=== PATIENT | female | born 1980 | race Caucasian/White ===

== ENCOUNTER → 2020-04-19 12:27 | Outpatient (CLI) | payer OTHER, SELFPAY ==
--- NOTE | ~2020-04-19 | XR_ITS ---
EXAMINATION: XR chest 2V DATE: 04/19/2020 12:52 INDICATION: Psoriatic arthritis. Long-term use of drugs. TECHNIQUE: Frontal and lateral views of the chest were obtained. COMPARISON: Chest 2 views 12/20/2018 FINDINGS: The chest demonstrates clear lungs without pneumonia, pleural effusion, or pneumothorax. Th e heart size is normal. IMPRESSION: 1. No acute cardiopulmonary disease. Reviewed, dictated and finalized at location A.
== END ==
PROVIDERS: Visit Provider Physician Assistant Medical
DX: L40.50 Arthropathic psoriasis, unspecified (principal); Z79.899 Other long term (current) drug therapy
CPT/HCPCS: 71046

== ENCOUNTER → 2020-12-11 10:56 | Outpatient (CLI) | payer OTHER, SELFPAY ==
--- NOTE | ~2020-12-11 | XR_ITS ---
XR foot LT min 3V 12/11/2020 11:31 Indication: Psoriatic arthritis Procedure: 4 views left foot Comparison: No prior studies for comparison. Findings: No fracture, subluxation or dislocation. Lisfranc joint is intact. Small degenerative calca elvira enthesophyte. No foreign bodies. No erosive changes. Impression: 1: No significant bone or joint abnormality. Reviewed, dictated and finalized at location A. Impression: 1: No significant bone or joint abnormality.
--- NOTE | ~2020-12-11 | XR_ITS ---
XR elbow LT 2V 12/11/2020 11:31 Indication: Psoriatic arthritis Procedure: 2 views left elbow Comparison: No prior studies for comparison. Findings: There is normal anatomic alignment. No fracture, subluxation or dislocation. No erosive poppy nges. No significant soft tissue abnormality. No foreign bodies. Impression: 1: No significant bone or joint abnormality. Reviewed, dictated and finalized at location A. Impression: 1: No significant bone or joint abnormality.
--- NOTE | ~2020-12-11 | XR_ITS ---
XR ankle RT 2V 12/11/2020 11:31 Indication: Psoriatic arthritis Procedure: 2 views right ankle Comparison: No prior studies for comparison. Findings: There is normal anatomic alignment. No joint space narrowing. No erosive changes. No fractu re or traumatic malalignment. Small degenerative calcaneal enthesophyte at the plantar surface. No si gnificant soft tissue abnormality. No foreign bodies. Impression: 1: No significant bone or joint abnormality. Reviewed, dictated and finalized at location A. Impression: 1: No significant bone or joint abnormality.
--- NOTE | ~2020-12-11 | XR_ITS ---
XR hand BI arthritis min 3V 12/11/2020 11:31 Indication: Psoriatic arthritis Procedure: 4 views each hand Comparison: No prior studies for comparison. Findings: No fracture, subluxation or dislocation. No erosive changes. There is anatomic alignment. Impression: 1: No significant bone or joint abnormality. Reviewed, dictated and finalized at location A. Impression: 1: No significant bone or joint abnormality.
--- NOTE | ~2020-12-11 | XR_ITS ---
XR ankle LT 2V 12/11/2020 11:31 Indication: Psoriatic arthritis Procedure: 2 views left ankle Comparison: 12/11/2020 Findings: Ankle mortise intact. Small degenerative calcaneal enthesophyte. No significant soft tissue abnormality. No foreign bodies. No erosive changes. There is anatomic alignment. Impression: 1: No significant bone or joint abnormality. Reviewed, dictated and finalized at location A. Impression: 1: No significant bone or joint abnormality.
--- NOTE | ~2020-12-11 | XR_ITS ---
XR hip BI wo pelvis 12/11/2020 11:31 Indication: Psoriatic arthritis Procedure: 2 views each hip Comparison: 11/23/2017 and 01/02/2014 Findings: Normal anatomic alignment. No significant joint space narrowing. No fracture, subluxation o r dislocation. Sacral foramen are symmetric. Pelvic rings are intact. Impression: 1: No significant bone or joint abnormality. Reviewed, dictated and finalized at location A. Impression: 1: No significant bone or joint abnormality.
--- NOTE | ~2020-12-11 | XR_ITS ---
XR foot RT min 3V 12/11/2020 11:31 Indication: Right foot pain Procedure: 4 views right foot Comparison: 4 views right foot Findings: No fracture, subluxation or dislocation. There is anatomic alignment. Lisfranc joint intact . Normal mineralization. No soft tissue abnormality. No erosive changes.. Impression: 1: No significant bone or joint abnormality. Reviewed, dictated and finalized at location A. Impression: 1: No significant bone or joint abnormality.
== END ==
PROVIDERS: Visit Provider Physician Assistant Medical
DX: L40.50 Arthropathic psoriasis, unspecified (principal); Z79.899 Other long term (current) drug therapy; M25.552 Pain in left hip
CPT/HCPCS: 73070; 73130; 73521; 73600; 73630

== ENCOUNTER 2022-11-23 10:25 | Outpatient (CLI) | payer BC, SELFPAY ==
[2022-11-23 18:53] LABS: Alanine Aminotransferase 123 U/L (6-35); Alkaline Phosphatase 96 U/L (38-126); Aspartate Amino Transferase 64 U/L (14-36); Bilirubin,Total 0.6 mg/dL (0.2-1.3)
== END 2022-11-23 10:26 | disposition home or self-care (01) ==
LOC: ANHGOSHLAB 10:26
PROVIDERS: PCP Internal Medicine; Visit Provider Nurse Practitioner
DX: R74.8 Abnormal levels of other serum enzymes (principal)
CPT/HCPCS: 36415; 80076

== ENCOUNTER → 2022-12-01 10:13 | Outpatient (CLI) | payer BC, SELFPAY ==
--- NOTE | ~2022-12-01 | CT_ITS ---
Clinical Indication: Breast cancer staging CT Scan of the Chest, Abdomen, and Pelvis with Contrast: Technique: Contiguous sections were acquired throughout the chest, abdomen, and pelvis after intraven ous administration of 100 cc of Omnipaque 350. Dose reduction technique was used on this scan by uti lizing automated exposure control and iterative reconstruction technique. The dose-length product (DL P) was 1433.29 mGy-cm. Findings: Single mildly prominent left axillary lymph node measures 1.9 x 1.0 cm in size (axial image 27). Suraj tional shotty left axillary lymph nodes are present. No right axillary or mediastinal/hilar lymphaden opathy seen. There is postoperative change in the left breast. The mediastinal soft tissues and vascu lar structures appear normal. There is no evidence of pleural or pericardial effusion. The lungs are clear. No pulmonary nodules or infiltrates are noted. Multiple subtle, hyperenhancing hepatic lesions are present, largest measuring 4 cm in diameter. The spleen, pancreas, gallbladder, adrenals and kidneys are within normal limits. No evidence of aortic aneurysm. No lymphadenopathy. No bowel obstruction or bowel wall thickening. There is no evidence to suggest acute appendicitis. Urinary bladder is unremarkable. Small left adnexal cyst present. No other adnexal mass seen present. No ascites. Impression: Multiple hyperenhancing hepatic lesions, largest measuring 4 cm in diameter, consistent with metastat ic disease. Single mildly enlarged left axillary lymph node with additional shotty left axillary lymph nodes. Lef t axillary micky metastatic disease is a consideration. Correlate with patient's prior workup. Consid er PET scan and/or tissue sampling of the largest lymph node as indicated. Probable postoperative change and postoperative seroma in the left breast. Recurrent/residual neoplas m left breast cannot be excluded by CT imaging. Again, correlation with prior workup and treatment hi story is required. Consider mammography/sonography and/or breast MRI as indicated. Reviewed, dictated and finalized at location M. Impression: Multiple hyperenhancing hepatic lesions, largest measuring 4 cm in diameter, co nsistent with metastatic disease. Single mildly enlarged left axillary lymph node with additional shotty left axi llary lymph nodes. Left axillary micky metastatic disease is a consideration. C orrelate with patient's prior workup. Consider PET scan and/or tissue sampling of the largest lymph node as indicated. Probable postoperative change and postoperative seroma in the left breast. Recu rrent/residual neoplasm left breast cannot be excluded by CT imaging. Again, co rrelation with prior workup and treatment history is required. Consider mammogr aphy/sonography and/or breast MRI as indicated.
[2022-12-01 10:36] LABS: Estimated Glomerular Filt Rate > 60
== END ==
PROVIDERS: PCP Internal Medicine; Visit Provider Internal Medicine Medical Oncology
DX: C50.919 Malignant neoplasm of unspecified site of unspecified female breast (principal); R74.8 Abnormal levels of other serum enzymes; K76.9 Liver disease, unspecified; R59.0 Localized enlarged lymph nodes
CPT/HCPCS: 71260; 74177; Q9967

== ENCOUNTER 2023-11-29 13:46 | Outpatient (CLI) | payer BC, SELFPAY ==
--- NOTE | 2023-11-29 15:11 | ECG_ITS ---
SEE SCANNED COPY FOR CONFIRMED REPORT MTDD
[2023-11-29 15:44] LABS: Hematocrit 39.4 % (37.0-47.0); Hemoglobin 12.6 g/dL (12.0-15.0); Mean Corpuscular Hemoglobin 30.1 pg (26-34); Mean Corpuscular Volume 94.3 fl (80-100); Mean Platelet Volume 9.5 fl (7.4-10.4); Platelet Count Result 365 k/mm3 (150-375); Red Blood Count 4.18 M/mm3 (4.2-5.4); Red Cell Distribution Width 13.7 % (11.5-14.5); White Blood Count 9.5 K/mm3 (4.5-10.0)
== END 2023-11-29 13:47 | disposition home or self-care (01) ==
PROVIDERS: PCP Clinical Nurse Specialist; Visit Provider Obstetrics & Gynecology
DX: C50.919 Malignant neoplasm of unspecified site of unspecified female breast (principal); I10 Essential (primary) hypertension; Z01.818 Encounter for other preprocedural examination
CPT/HCPCS: 36415; 85027; 86850; 86900; 86901; 93005

== ENCOUNTER 2023-12-06 00:50 | Day surgery (SDC) | payer BC, SELFPAY ==
[2023-11-22 13:11] VITALS: BMI 36.0
--- NOTE | 2023-11-22 13:32 | SUR.PREOP ---
Report to the Outpatient Waiting Room, entrance under the green pavilion located off [facility], at time 0730 on date 12/06/23. Planned Procedure Time: _0930_. Time changes happen often and if your time is changed the preop area will call you the afternoon before. - You and your visitor will be asked to self-screen and do not enter if you have any COVID symptoms. - A mask is optional within the hospital at this time. Patients may have clear liquids (water, carbonated beverages, clear teas, apple juice) until 3 hours prior to surgery with a maximum of 20 ounces. - No food from midnight until time of surgery (20 ounces before 0630 am) - Infants may have breast milk until 4 hours before surgery, formula 6 hours prior to surgery. - Children will be allowed to drink immediately following surgery. If applicable, please bring a bottle or sippy cup to assist with drinking. Juice, water, soda, and popsicles are readily available. For infants on formula, please bring formula the day of surgery. Pacifiers are allowed. Take the following medications with a SIP of water the morning of surgery: ____gabapentin, effexor DO NOT STOP ANY OF YOUR OTHER PRESCRIPTION MEDICATIONS PRIOR TO SURGERY ?EXCEPT THE FOLLOWING Medications to discontinue per physician ____hold vitamins and supplements for 3 days prior Date to take last dose Please no make-up, nail costa rican, hairspray, perfume, deodorant, or body powder the day of surgery. No jewelry (including any body piercings) or valuables the day of surgery, leave them at home. Please take a shower or bath the night before, or the morning of, surgery with an antibacterial soap. Wear comfortable, loose fitting clothing. Children are encouraged to wear pajamas. - Jewelry must be removed prior to entering the operating room. Rings and piercings that are not removed may be cut off. - The hospital will not accept responsibility for valuables. - Please leave all valuables, including medications, at home the day of surgery. If you are going home after surgery, a licensed driver medic must drive you home. - NO public transportation without another adult if you receive anesthesia. - We recommend that an adult stay with you for 24 hours following discharge. - We also recommend that you do not drive, make important decision, drink alcoholic beverages, or take any drugs that were not prescribed by your health care provider for at least 24 hours after your discharge time. For Pediatric surgeries, we recommend two adults accompany the child home. Follow any additional instructions given to you from your surgeon. If you or anyone in your household have experienced Covid symptoms in the past week, please notify your surgeon or the nurse liaison at the phone number below for possible testing. Telephone instructions given to __patient__and asked if any additional questions and then verbalized understanding. Patient advised to call surgeon office or pre surgery nurse liaison [phone] if any additional questions.
[2023-12-06] VITALS (9 sets, daily range): BP systolic 122–145; BP diastolic 75–98; PULSE 74–93; RESP 12–18; TEMP 36.1–36.6; O2SAT 93–100; BMI 34.4
--- NOTE | 2023-12-06 08:13 | WPDHPUPDATE1 ---
History and Physical Update Update Date/Time: 12/06/23 08:13 History and Physical has been reviewed, including an updated exam of the patient. There are NO changes in the patient's condition. Risks, benefits, and alternatives have been discussed and questions answered. Patient agrees to proceed with procedure.
[2023-12-06] MEDS: ACETAMINOPHEN 500 MG TABLET 1000 MG PO (08:26)
[2023-12-06] MEDS: LACTATED RINGERS 1,000 ML 30 ML IV CONT ×2 (08:35→10:38)
--- NOTE | 2023-12-06 08:37 | WPDANESEPPF ---
Anes - Initial Pre Proc Eval Procedure: Operation Date: 12/06/23 09:30 Proposed Procedures p Robotic Assisted Laparoscopic Bilateral Salpingo-oophorectomy - Mandeep Ghosh MD Date/Time: 12/06/23 08:37 Surgeon: Mandeep Ghosh MD Pre Op Diagnosis: Breast Ca Patient Data Age: 43 Gender: F Height: 1.7 m Weight: 104.33 kg Allergies Allergy/AdvReac Type Severity Reaction Status Date / Time Penicillins Allergy Intermediate HIVES Verified 11/28/23 15:07 adhesive tape Allergy Mild RASH Verified 11/28/23 15:07 amoxicillin Allergy Unknown Hives Verified 11/28/23 15:07 Home Medications Medication Instructions Recorded Confirmed Type amitriptyline 10 mg tablet 10 mg PO .QHS 09/22/19 11/22/23 History cetirizine 10 mg tablet (Zyrtec) 10 mg PO DAILY 09/22/19 11/22/23 History cholecalciferol (vitamin D3) 25 1,000 unit PO DAILY 09/22/19 11/22/23 History mcg (1,000 unit) capsule gabapentin 300 mg capsule 300 mg PO TID 09/22/19 11/22/23 History naproxen 500 mg tablet 500 mg PO BID 09/22/19 11/22/23 History trazodone 50 mg tablet 50 mg PO .QHS PRN Sleep 09/22/19 11/22/23 History biotin 1 mg capsule 1 mg PO DAILY 10/28/19 11/22/23 History folic acid 1 mg tablet 1 mg PO DAILY 10/28/19 11/22/23 History methotrexate sodium 25 mg/mL 20 mg IM WEEKLY 10/28/19 11/22/23 History injection solution methylphenidate HCl 20 mg tablet 20 mg PO BID PRN Sleep 12/25/22 11/22/23 History lisinopril 10 mg tablet 10 mg PO DAILY #90 tabs 01/05/23 11/22/23 Rx omeprazole 20 mg capsule,delayed 20 mg PO DAILY #90 caps 06/11/23 11/22/23 Rx release estradiol 0.01% (0.1 mg/gram) 1 appful vaginal DAILY #42.5 grams 09/19/23 11/22/23 Rx vaginal cream venlafaxine 37.5 mg 37.5 mg PO DAILY 09/19/23 11/22/23 History capsule,extended release 24 hr (Effexor XR) fluoxetine 60 mg tablet 60 mg PO DAILY #30 tabs 11/19/23 11/22/23 Rx folic acid 1 mg tablet 1 mg PO DAILY 11/28/23 History magnesium oxide 400 mg PO DAILY 11/28/23 History vitamin E (dl, acetate) 180 mg 180 mg PO DAILY 11/28/23 History (400 unit) capsule Patient hx anesthesia problems: post op nausea/vomiting (One time in the past, improved w scop patch. ) Family hx anesthesia problems: none Results Review: All pre-operative results and documents have been reviewed as part of the pre-operative evaluation. [facility] Past Medical History Medical History Abnormal breast biopsy 09/28/2022 Allergies Anemia Anxiety Asthma Breast cancer 10/02/2022 Breast mass Heartburn Osteoarthritis Psoriatic arthritis Tension headache Thyroid nodule Surgical History Surgical History H/O colonoscopy age 22 H/O left breast biopsy (09/28/22) left breast biopsy done at [place] Invasive Ductal Carcinoma History of colposcopy COLP/BX- Years ago History of lumpectomy of left breast (10/26/22) radiation after 20 sessions last done 03/08/2023 History of orthopedic surgery (06/20/18) plantar fascitis release left foot Tabiona teeth removed Family History Family History Father CHF (congestive heart failure) COPD (chronic obstructive pulmonary disease) Diabetes mellitus Emphysema lung Crohn's disease Mother FH: mental illness Social History Social History Social History: Caffeine-occasionally Smoking status: Never smoker Second hand tobacco smoke exposure: No Alcohol intake: current Alcohol use details: occasionally Substance use: never Substance use type: does not use Do You Feel Safe in your Home?: Yes Lack of Transportation: No Lack of Food: Never True Current Housing: I Have Housing Concerned About Future Housing: No Difficulty Paying Gas/Electric Bills: No Difficulty Paying for Meds: No Currently Unemployed: No
[2023-12-06] MEDS: SCOPOLAMINE 1 MG PATCH 1 PATCH TRANSDERM (09:14)
[2023-12-06] MEDS: KETOROLAC 15 MG/ML VIAL (*BKC) IV PUSH (09:18)
--- NOTE | 2023-12-06 10:12 | W.PM.PROC2 ---
Procedure Note - Detailed Date of Procedure 12/06/23 Pre-op Diagnosis Personal history of breast cancer on anti estrogenic therapy Post-op Diagnosis Same Procedure Performed Robotic assisted laparoscopic bilateral salpingo oophorectomy Surgeon Mandeep Ghosh MD Anesthesia General Indications Breast cancer on antiestrogen therapy Findings Tubes ovaries uterus without abnormality Description of Procedure Patient was prepped and draped in usual manner for this procedure. Abdominal trocar sites were marked and trocars placed under direct visualization. Trocars were then attached to the de Miller system, and surgeon moved to the console. Using the cautery bilaterally the mesial salpinx and infundibulopelvic ligaments were cauterized and cut under direct visualization. This was done bilaterally without issue. Prior to cauterizing, the ureter was followed through its entire course and was well out of the operative field throughout. The tubes and ovaries then placed in Endo-Catch bag and the specimen was removed out of the right upper quadrant. Gas was allowed to escape and incisions approximated using 4-0 Monocryl. Patient was then sent to recovery room in stable condition. Estimated Blood Loss 10 Drains No Packing No Pathology Yes Complications No immediate complications Condition Stable Disposition PACU [facility] Billing Surgery - Charge Forward: Surgery Billing
[2023-12-06] MEDS: fentaNYL CITRATE INJ (*CRX) 100 MCG/2 ML VIAL 25 MCG IV PUSH ×4 (11:23→11:44)
== END 2023-12-06 12:45 | disposition home or self-care (01) ==
PROVIDERS: PCP Internal Medicine; Visit Provider Obstetrics & Gynecology
PROC: 8E0W4CZ Robotic Assisted Procedure of Trunk Region, Percutaneous Endoscopic Approach (ICD-10-PCS; CPT 49320; principal; 2023-12-06 09:30)
DX: Z40.02 Encounter for prophylactic removal of ovary(s) (principal); N83.202 Unspecified ovarian cyst, left side; N83.201 Unspecified ovarian cyst, right side; D64.9 Anemia, unspecified; F41.9 Anxiety disorder, unspecified; J45.909 Unspecified asthma, uncomplicated; E66.9 Obesity, unspecified; Z68.34 Body mass index [BMI] 34.0-34.9, adult; Z79.1 Long term (current) use of non-steroidal anti-inflammatories (NSAID); Z98.890 Other specified postprocedural states; Z92.3 Personal history of irradiation; Z85.3 Personal history of malignant neoplasm of breast; Z82.49 Family history of ischemic heart disease and other diseases of the circulatory system
CPT/HCPCS: 58661; S2900; 36415; 85027; 86850; 86900; 86901; 88305; 93005; A9270; J1100; J1885; J2250; J2405; J2704; J3010; J7030; J7120

== ENCOUNTER 2024-11-29 07:51 | Outpatient (CLI) | payer BC, SELFPAY ==
--- NOTE | ~2024-11-29 | XR_ITS ---
AP and lateral views of the right hip Clinical history: Pain Findings: No acute fracture or dislocation is seen. Osseous alignment is anatomic. Right hip joint is intact. Soft tissues are unremarkable. Impression: No significant abnormality is seen. Reviewed, dictated and finalized at location M. Impression: No significant abnormality is seen.
== END 2024-11-29 07:52 | disposition home or self-care (01) ==
LOC: MICIMG 07:53
PROVIDERS: PCP Internal Medicine; Visit Provider Physician Assistant Medical
DX: M25.551 Pain in right hip (principal)
CPT/HCPCS: 73502